=== PATIENT | male | born 1970 | race Caucasian/White ===

== ENCOUNTER 2017-07-27 13:06 | Emergency (ER) | payer BC ==
[2017-07-27 13:11] VITALS: BP 124/70; PULSE 70; RESP 20; TEMP 98.7
--- NOTE | 2017-07-27 13:22 | ED ---
Skin/Abscess/FB HPI - General Chief complaint: Skin/Abscess/Foreign Body Stated complaint: Rash Time Seen by Provider: 07/27/17 13:13 Source: patient, RN notes reviewed Mode of arrival: ambulatory Limitations: no limitations - History of Present Illness Initial comments: This a 46-year-old male presents emergency Department chief complaint of rash. Patient states he noticed in his left antecubital fossa region, right side of his neck. He states it slightly itchy in nature there is no pain. He states that initially seemed to spread for the first 24-48 hours but has not gotten worse. Patient states he tried some cream at home but wasn't sure exactly what the cream was. Patient denies any difficulty swallowing, difficult breathing. Denies fever, chills. Patient states [place] and states that it started shortly after. He states it does slightly feel like poison flori but a little different. - Related Data Previous Rx's Medication Instructions Recorded Triamcinolone 0.1% Cream [Kenalog] 1 applicatio TOPICAL BID #30 gram 07/27/17 predniSONE 50 mg PO DAILY #5 tab 07/27/17 Allergies Allergy/AdvReac Type Severity Reaction Status Date / Time No Known Allergies Allergy Verified 07/27/17 13:11 Review of Systems ROS Statement: Those systems with pertinent positive or pertinent negative responses have been documented in the HPI. ROS Other: All systems not noted in ROS Statement are negative. Past Medical History Past Medical History: No Reported History History of Any Multi-Drug Resistant Organisms: None Reported Past Surgical History: No Surgical Hx Reported Past Psychological History: No Psychological Hx Reported Smoking Status: Never smoker Past Alcohol Use History: None Reported Past Drug Use History: None Reported General Exam Limitations: no limitations General appearance: alert, in no apparent distress Head exam: Present: atraumatic, normocephalic, normal inspection Eye exam: Present: normal appearance, PERRL, EOMI. Absent: scleral icterus, conjunctival injection, periorbital swelling ENT exam: Present: normal exam, normal oropharynx, mucous membranes moist, TM's normal bilaterally Neck exam: Present: normal inspection, full ROM. Absent: tenderness, meningismus, lymphadenopathy Respiratory exam: Present: normal lung sounds bilaterally. Absent: respiratory distress, wheezes, rales, rhonchi, stridor Cardiovascular Exam: Present: regular rate, normal rhythm, normal heart sounds. Absent: systolic murmur, diastolic murmur, rubs, gallop, clicks Skin exam: Present: warm, dry, intact, normal color, rash (Erythematous papular vesicular rash noted in the left antecubital fossa, right side of the neck) Course Vital Signs 07/27/17 13:09 Temperature 98.7 F Pulse Rate 70 Respiratory 20 Rate Blood Pressure 124/70 O2 Sat by Pulse 99 Oximetry Medical Decision Making - Medical Decision Making 46-year-old male present emergency from for rash. This rash appears to be contact dermatitis in nature. This most likely is from urosol oil. Patient we treated with oral and topical steroids. Return parameters were discussed Disposition Clinical Impression: Contact dermatitis Disposition: HOME SELF-CARE Condition: Stable Instructions: Contact Dermatitis (ED), Poison Flori (ED) Additional Instructions: Please return to the Emergency Department if symptoms worsen or any other concerns. Prescriptions: predniSONE 50 mg PO DAILY #5 tab Triamcinolone 0.1% Cream [Kenalog] 1 applicatio TOPICAL BID #30 gram Referrals: Donnell Wade MD [Primary Care Provider] - 1-2 days Time of Disposition: 13:22
== END 2017-07-27 13:36 | disposition home or self-care (01) ==
LOC: EC 13:06
DX: L25.9 Unspecified contact dermatitis, unspecified cause (principal)
CPT/HCPCS: 99282

== ENCOUNTER 2019-04-13 10:08 | Day surgery (SDC) | payer BC ==
[2019-04-08 11:57] VITALS: BMI 32.5
[~2019-04-13 10:08] MED LIST: LACTATED RINGERS 1,000 ML IV SCH; LIDOCAINE 1% 20 ML VIAL (10MG/ML) FOR IV START INTRADERMA PRN
[2019-04-13 10:42] VITALS: RESP 16; TEMP 97.3
[2019-04-13] MEDS ORDERED: PROPOFOL 10 MG/ML 20 ML VIAL IV ONE (11:20)
--- NOTE | 2019-04-13 11:44 | P.PCN ---
Date of Procedure: 04/13/19 Description of Procedure: BRIEF HISTORY: Patient is a 48-year-old pleasant male scheduled for an elective colonoscopy as a part of screening for malignant neoplasm. No prior colonoscopy reported. No change in bowel habits, abdominal pain or blood per rectum. Unknown family history as the patient was adopted. PROCEDURE PERFORMED: Colonoscopy. PREOPERATIVE DIAGNOSIS: Screening for malignant neoplasm of the colon, no prior colonoscopy reported. ESTIMATED BLOOD LOSS: Minimal. IV sedation per Anesthesia. PROCEDURE: After informed consent was obtained, the patient, was brought into the endoscopy unit. IV sedation was administered by Anesthesia under continuous monitoring. Digital rectal examination was normal. Initially the Olympus CF-190 flexible video colonoscope was then inserted in the rectum, gradually advanced into the cecum without any difficulty. Careful examination was performed as the scope was gradually being withdrawn. Ileocecal valve and the appendiceal orifice were visualized and appeared normal. Prep was excellent. Mucosa of the cecum, ascending colon, transverse colon, descending colon, sigmoid colon, and rectum appeared normal. Retroflexion was performed in the rectum and no lesions were seen. The patient tolerated the procedure well. IMPRESSION: Normal-appearing colon from rectum to cecum. RECOMMENDATIONS: Findings of this examination were discussed with the patient and his . Okay to resume diet. Recommend repeat colonoscopy in 10 years or sooner if signs or symptoms which warrant further evaluation develop.
[2019-04-13 12:08] VITALS: BP 112/70; PULSE 80
== END 2019-04-13 12:14 | disposition home or self-care (01) ==
LOC: ORWHC2ENDO 10:08
PROVIDERS: ATTEND Internal Medicine
DX: Z12.11 Encounter for screening for malignant neoplasm of colon (principal)
CPT/HCPCS: J2704; G0121